=== PATIENT | male | born 1960 | race American Indian/Alaskan Native ===

== ENCOUNTER 2018-06-29 13:57 | Inpatient (IN) | payer MEDICARE, OTHER ==
[~2018-06-29] VITALS: Ht 182.9 cm; Wt 100.0 kg
[2018-06-29 15:10] LABS: BASOPHILS # (AUTO) 0.1 X10'3 (0-0.2); BASOPHILS % (AUTO) 0.4 % (0-1); EOSINOPHILS % (AUTO) 0 % (0-6); HEMATOCRIT 46.7 % (42.0-52.0); HEMOGLOBIN 15.8 g/dl (14.0-17.9); LYMPHOCYTES # (AUTO) 1.1 X10'3 (1.1-4.8); LYMPHOCYTES % (AUTO) 6.9 % (21-51); MEAN CORPUSCULAR HEMOGLOBIN 30.1 PG (27.0-31.0); MEAN CORPUSCULAR HGB CONC 33.9 g/dL (33.0-36.5); MEAN CORPUSCULAR VOLUME 88.9 FL (78-98); MEAN PLATELET VOLUME 9.1 FL (7.4-10.4); MONOCYTES # (AUTO) 1.2 X10'3 (0-0.9); MONOCYTES % (AUTO) 7.6 % (2-12); NEUTROPHILS # (AUTO) 13.1 X10'3 (1.8-7.7); NEUTROPHILS % (AUTO) 85.1 % (42-75); PLATELET COUNT 292 X10'3 (140-440); RED BLOOD COUNT 5.26 X10'6 (4.70-6.10); RED CELL DISTRIBUTION WIDTH 14.2 % (11.5-14.5); WHITE BLOOD COUNT 15.4 X10'3 (4.5-11.0)
[2018-06-29] MEDS ORDERED: pantoprazole 40 MG vial IV ONE (15:10)
[2018-06-29 15:23] LABS: PARTIAL THROMBOPLASTIN TIME 25 SECONDS (22-32)
[2018-06-29 15:41] LABS: ALANINE AMINOTRANSFERASE 29 U/L (12-78); ALBUMIN 4.7 G/DL (3.4-5.0); ALBUMIN/GLOBULIN RATIO 1.3 (1.1-1.5); ALKALINE PHOSPHATASE 147 IU/L (46-116); ANION GAP 16 (8-16); ASPARTATE AMINO TRANSFERASE 56 U/L (10-37); BILIRUBIN,TOTAL 3.4 MG/DL (0.1-1.0); BLOOD UREA NITROGEN 14 MG/DL (7-18); BUN/CREATININE RATIO 9.7 (5.4-32.0); CALCIUM 9.9 MG/DL (8.5-10.1); CHLORIDE 94 MMOL/L (99-107); CREATININE 1.45 MG/DL (0.60-1.10); GLUCOSE 129 MG/DL (70-104); SODIUM 131 MMOL/L (135-145); TOTAL CARBON DIOXIDE 20.6 MMOL/L (24-32); TOTAL PROTEIN 8.4 G/DL (6.4-8.2); eGFR 50 ML/MIN
[2018-06-29] MEDS ORDERED: normal saline 1000ml 1,000 ML IV ONE ×2 (15:45)
[2018-06-29 15:54] LABS: CLARITY,URINE CLEAR (Clear); COLOR,URINE YELLOW (Yellow); GLUCOSE, URINE NEGATIVE (Neg); KETONES,URINE 15 mg/dl (Neg); LEUKOCYTE ESTERASE ,URINE NEGATIVE (Neg); NITRITES, URINE NEGATIVE (Neg); OCCULT BLOOD,URINE SMALL (Neg); PROTEIN,URINE TRACE mg/dl (Neg); UROBILINOGEN,URINE 0.2 E.U/dL (0.2-1.0)
[2018-06-29 15:57] LABS: UA COLLECTION TYPE CLN CATCH MIDSTREAM
[2018-06-29 16:04] LABS: SQUAMOUS EPITHELIAL CELL,UR FEW /LPF (FEW)
[2018-06-29 16:04] LABS: ETHANOL < 0.010 GM/DL (0.0-0.010)
[2018-06-29 16:06] LABS: WBC,URINE 0-4 /HPF (0-4)
[2018-06-29 16:07] LABS: BACTERIA,URINE FEW /HPF (Neg); RBC,URINE 0-2 /HPF (0-2)
[2018-06-29 16:08] LABS: TRANSITIONAL EPI CELLS,URINE FEW /HPF
[2018-06-29 16:09] LABS: URINE AMPHETAMINE SCREEN NEGATIVE (Neg); URINE BARBITUATE SCREEN NEGATIVE (Neg); URINE BENZODIAZEPINES SCREEN NEGATIVE (Neg); URINE CANNABINOID SCREEN NEGATIVE (Neg); URINE COCAINE SCREEN NEGATIVE (Neg); URINE METHADONE SCREEN NEGATIVE (Neg); URINE OPIATE SCREEN NEGATIVE (Neg); URINE PHENCYCLIDINE SCREEN NEGATIVE (Neg)
--- NOTE | 2018-06-29 17:12 | NUR ---
MUKUL NEGATIVE WITH DR WALTERS IN ROOM
[2018-06-29] MEDS ORDERED: LORazepam 2 mg/ml vial IV ONE (17:15)
[2018-06-29] MEDS ORDERED: dextrose 50%-water 50ml dispensing syringe IV PRN (17:25)
[2018-06-29] MEDS ORDERED: haloperidol lactate 5mg/ml inj IM PRN (17:25)
[2018-06-29] MEDS ORDERED: acetaminophen 325mg tablet PO PRN ×2 (17:25)
[2018-06-29] MEDS ORDERED: magnesium 4gm in 100ml NS 100 ML IV PRN (17:25)
[2018-06-29] MEDS ORDERED: folic acid inj. 2 MG, thiamine inj. 100 MG, MVI, adult No.4 with vit. K 10 ML in dextro... IV SCH ×4 (17:25)
[2018-06-29] MEDS ORDERED: haloperidol 5mg tablet PO PRN (17:25)
[2018-06-29] MEDS ORDERED: potassium Cl 20 mEq SR tablet PO PRN ×2 (17:25)
[2018-06-29] MEDS ORDERED: metoclopramide 5 mg/ml inj IV PRN (17:25)
[2018-06-29] MEDS ORDERED: magnesium 2GM in 50ml NS 50 ML IV PRN (17:25)
[2018-06-29] MEDS ORDERED: LORazepam 2 mg/ml vial IV PRN (17:25)
[2018-06-29] MEDS ORDERED: ondansetron/PF 4mg/2ml inj IV PRN (17:25)
[2018-06-29] MEDS ORDERED: magnesium Cl slow-release 64mg tablet PO PRN (17:25)
[2018-06-29] MEDS ORDERED: HYDROcodone/acetaminophen 5mg/325mg tablet PO PRN (17:25)
[2018-06-29] MEDS ORDERED: potassium Cl 40MEQ/NS 500ml 500 ML IV PRN ×2 (17:25)
[2018-06-29] MEDS ORDERED: thiamine 100mg/ml 2ml inj. IV ONE (17:25)
[2018-06-29] MEDS ORDERED: magnesium hydroxide 30ml (MOM) UD suspension PO PRN (17:25)
[2018-06-29] MEDS ORDERED: mag hydrox/Alum hydrox/simeth 30ml oral suspension PO PRN (17:25)
[2018-06-29 17:35] LABS: AMYLASE 25 U/L (25-115); LIPASE 90 U/L (73-393)
[2018-06-29] MEDS ORDERED: QUET100T33 PO ×3 (17:55)
[2018-06-29] MEDS ORDERED: PANT20TA3 PO (17:55)
[2018-06-29] MEDS ORDERED: POTA-82 PO (17:55)
[2018-06-29] MEDS ORDERED: PRAZ1CAP5 PO (17:55)
[2018-06-29] MEDS ORDERED: DULO60CA64 PO (17:55)
[2018-06-29] MEDS ORDERED: SILD100T PO (17:55)
[2018-06-29] MEDS ORDERED: METO-411 PO (17:55)
[2018-06-29] MEDS ORDERED: MULT-1154 PO (18:03)
[2018-06-29] MEDS ORDERED: TRAZ-219 PO (18:05)
[2018-06-29] MEDS ORDERED: MECL-111 PO (18:12)
[2018-06-29] MEDS ORDERED: LITH150C8 PO (18:12)
[2018-06-29] MEDS ORDERED: LISI2.5T89 PO (18:12)
[2018-06-29] MEDS ORDERED: ASPI-611 PO (18:12)
[2018-06-29] MEDS ORDERED: GABA-534 PO (18:12)
[2018-06-29] MEDS ORDERED: ATOR-2 PO (18:12)
[2018-06-29] MEDS ORDERED: non-formulary drug (Trazodone HCl 2 TAB) PO PRN (18:25)
[2018-06-29] MEDS: multivitamins, therapeutics tablet PO SCH (18:33)
[2018-06-29] MEDS: piperacillin/tazo 3.375gm/50ml 50 ML IV SCH (18:33)
[2018-06-29] MEDS: normal saline 1000ml 1,000 ML IV SCH (18:33)
[2018-06-29 18:39] LABS: MAGNESIUM 2.1 MG/DL (1.5-2.4)
[2018-06-29] MEDS ORDERED: traZODone 50mg tablet PO PRN (18:45)
[2018-06-29 20:53] LABS: OCCULT BLOOD STOOL NEGATIVE (Neg)
[2018-06-29] MEDS ORDERED: quetiapine 100mg tablet PO SCH (21:00)
[2018-06-29] MEDS: gabapentin 400mg capsule PO SCH (21:35)
[2018-06-29] MEDS: lithium carbonate 150mg capsule PO SCH (21:36)
[2018-06-29] MEDS: prazosin 1mg capsule PO SCH (21:36)
--- NOTE | 2018-06-30 01:33 | NUR ---
SHAWN VIDAL AGAIN NOTIFIED THAT PATIENT DOES NOT HAVE AN IV
[2018-06-30] MEDS: piperacillin/tazo 3.375gm/50ml 50 ML IV SCH ×3 (01:54→16:56)
[2018-06-30] MEDS: normal saline 1000ml 1,000 ML IV SCH ×3 (02:05→21:15)
[2018-06-30 03:11] LABS: BASOPHILS % (AUTO) 0.2 % (0-1); EOSINOPHILS % (AUTO) 0.4 % (0-6); HEMATOCRIT 39.2 % (42.0-52.0); HEMOGLOBIN 13.3 g/dl (14.0-17.9); LYMPHOCYTES # (AUTO) 1.6 X10'3 (1.1-4.8); LYMPHOCYTES % (AUTO) 14.8 % (21-51); MEAN CORPUSCULAR HEMOGLOBIN 30.1 PG (27.0-31.0); MEAN CORPUSCULAR HGB CONC 33.9 g/dL (33.0-36.5); MEAN CORPUSCULAR VOLUME 88.8 FL (78-98); MONOCYTES # (AUTO) 1.3 X10'3 (0-0.9); NEUTROPHILS # (AUTO) 7.8 X10'3 (1.8-7.7); NEUTROPHILS % (AUTO) 72.6 % (42-75); PLATELET COUNT 186 X10'3 (140-440); RED BLOOD COUNT 4.42 X10'6 (4.70-6.10); RED CELL DISTRIBUTION WIDTH 14.4 % (11.5-14.5); WHITE BLOOD COUNT 10.7 X10'3 (4.5-11.0)
[2018-06-30 03:20] LABS: INR 1.1 INR; PARTIAL THROMBOPLASTIN TIME 24 SECONDS (22-32)
[2018-06-30 03:28] LABS: ALANINE AMINOTRANSFERASE 25 U/L (12-78); ALBUMIN 3.6 G/DL (3.4-5.0); ALBUMIN/GLOBULIN RATIO 1.2 (1.1-1.5); ALKALINE PHOSPHATASE 107 IU/L (46-116); ANION GAP 13 (8-16); ASPARTATE AMINO TRANSFERASE 40 U/L (10-37); BILIRUBIN,TOTAL 2.6 MG/DL (0.1-1.0); BLOOD UREA NITROGEN 14 MG/DL (7-18); CALCIUM 8.4 MG/DL (8.5-10.1); CHLORIDE 104 MMOL/L (99-107); CHOL/HDL RATIO 3.1 (0.00-4.99); CHOLESTEROL 107 MG/DL (0-200); CREATININE 1.17 MG/DL (0.60-1.10); GLUCOSE 125 MG/DL (70-104); HDL CHOLESTEROL 34 MG/DL (35-60); LDL CHOLESTEROL 60 MG/DL (50-100); MAGNESIUM 2.2 MG/DL (1.5-2.4); PHOSPHORUS 2.7 MG/DL (2.3-4.5); POTASSIUM 3.3 MMOL/L (3.5-5.1); SODIUM 138 MMOL/L (135-145); TOTAL PROTEIN 6.5 G/DL (6.4-8.2); TRIGLYCERIDES 164 MG/DL (20-135); eGFR 64 ML/MIN
--- NOTE | 2018-06-30 06:38 | NUR ---
AVNI VIDAL AWARE MEDICATIONS AND BELONGINGS NOT DOCUMENTED
[2018-06-30] MEDS: K and/or MAG REPLACEMENT MC SCH (08:00)
[2018-06-30] MEDS ORDERED: non-formulary drug (Metoprolol Succinate 0.5 TAB) PO SCH (08:00)
[2018-06-30] MEDS ORDERED: non-formulary drug (Potassium Chloride 2 TAB) PO SCH (08:00)
[2018-06-30] MEDS: quetiapine 100mg tablet PO SCH ×2 (08:00)
[2018-06-30] MEDS ORDERED: non-formulary drug (Aspirin (Aspir 81) 1 TAB) PO SCH (08:00)
[2018-06-30] MEDS ORDERED: non-formulary drug (Duloxetine HCl 1 CAP) PO SCH (08:00)
[2018-06-30] MEDS: lithium carbonate 150mg capsule PO SCH ×2 (10:06→21:13)
[2018-06-30] MEDS: duloxetine 30mg CAPSULE.DR PO SCH (10:07)
[2018-06-30] MEDS: multivitamins, therapeutics tablet PO SCH (10:07)
[2018-06-30] MEDS: lisinopril 2.5mg tablet PO SCH (10:08)
[2018-06-30] MEDS: metoprolol succinate 25mg (24-HOUR) SR. Tablet PO SCH (10:09)
[2018-06-30] MEDS: prazosin 1mg capsule PO SCH ×2 (10:09→21:13)
[2018-06-30] MEDS: aspirin 81mg tablet.DR PO SCH (10:09)
[2018-06-30] MEDS: pantoprazole 40 MG vial IV SCH (10:10)
[2018-06-30] MEDS: enoxaparin 40mg/0.4ml syringe SUBCUT SCH (10:11)
[2018-06-30] MEDS: gabapentin 400mg capsule PO SCH ×3 (10:22→21:14)
[2018-06-30] MEDS: potassium Cl 20 mEq SR tablet PO SCH (10:23)
[2018-06-30] MEDS ORDERED: potassium Cl 20 mEq SR tablet PO ONE (11:50)
[2018-06-30] MEDS: folic acid inj. 2 MG, thiamine inj. 100 MG in dextrose 5% water 500ml 500 ML IV SCH (12:31)
[2018-06-30 17:22] VITALS: BP 106/72
[2018-06-30 19:00] VITALS: BP 113/75
[2018-06-30] MEDS: QUEtiapine 25mg tablet PO SCH (21:15)
[2018-06-30 23:00] VITALS: BP 108/73
[2018-07-01] MEDS: piperacillin/tazo 3.375gm/50ml 50 ML IV SCH ×2 (00:49→07:46)
[2018-07-01 03:00] VITALS: BP 107/72
[2018-07-01 05:48] LABS: BASOPHILS # (AUTO) 0.1 X10'3 (0-0.2); BASOPHILS % (AUTO) 0.6 % (0-1); EOSINOPHILS # (AUTO) 0.3 X10'3 (0-0.9); EOSINOPHILS % (AUTO) 3.6 % (0-6); HEMATOCRIT 35.7 % (42.0-52.0); HEMOGLOBIN 11.8 g/dl (14.0-17.9); LYMPHOCYTES # (AUTO) 1.4 X10'3 (1.1-4.8); LYMPHOCYTES % (AUTO) 17.5 % (21-51); MEAN CORPUSCULAR HEMOGLOBIN 29.9 PG (27.0-31.0); MEAN CORPUSCULAR HGB CONC 33.1 g/dL (33.0-36.5); MEAN CORPUSCULAR VOLUME 90.2 FL (78-98); MEAN PLATELET VOLUME 8.9 FL (7.4-10.4); MONOCYTES # (AUTO) 0.8 X10'3 (0-0.9); MONOCYTES % (AUTO) 9.8 % (2-12); NEUTROPHILS # (AUTO) 5.6 X10'3 (1.8-7.7); NEUTROPHILS % (AUTO) 68.5 % (42-75); PLATELET COUNT 156 X10'3 (140-440); RED BLOOD COUNT 3.96 X10'6 (4.70-6.10); RED CELL DISTRIBUTION WIDTH 14.1 % (11.5-14.5); WHITE BLOOD COUNT 8.2 X10'3 (4.5-11.0)
[2018-07-01 05:59] LABS: INR 1.1 INR; PARTIAL THROMBOPLASTIN TIME 26 SECONDS (22-32)
[2018-07-01 06:00] VITALS: BP 108/70
[2018-07-01 06:09] LABS: ALANINE AMINOTRANSFERASE 18 U/L (12-78); ALBUMIN 3.1 G/DL (3.4-5.0); ALBUMIN/GLOBULIN RATIO 1.1 (1.1-1.5); ALKALINE PHOSPHATASE 95 IU/L (46-116); ANION GAP 10 (8-16); ASPARTATE AMINO TRANSFERASE 25 U/L (10-37); BILIRUBIN,TOTAL 1.8 MG/DL (0.1-1.0); BLOOD UREA NITROGEN 11 MG/DL (7-18); BUN/CREATININE RATIO 9.5 (5.4-32.0); CALCIUM 8.2 MG/DL (8.5-10.1); CHLORIDE 108 MMOL/L (99-107); CREATININE 1.16 MG/DL (0.60-1.10); GLUCOSE 109 MG/DL (70-104); MAGNESIUM 2.1 MG/DL (1.5-2.4); PHOSPHORUS 2.2 MG/DL (2.3-4.5); POTASSIUM 3.5 MMOL/L (3.5-5.1); SODIUM 140 MMOL/L (135-145); TOTAL CARBON DIOXIDE 21.8 MMOL/L (24-32); eGFR 65 ML/MIN
--- NOTE | 2018-07-01 06:19 | NUR ---
Problems reprioritized. Patient report given, questions answered & plan of care reviewed with Henrietta VIDAL.
[2018-07-01] MEDS: multivitamins, therapeutics tablet PO SCH (07:47)
[2018-07-01] MEDS: quetiapine 100mg tablet PO SCH ×2 (07:47→08:23)
[2018-07-01] MEDS: aspirin 81mg tablet.DR PO SCH (07:48)
[2018-07-01] MEDS: lisinopril 2.5mg tablet PO SCH (07:49)
[2018-07-01] MEDS: duloxetine 30mg CAPSULE.DR PO SCH (07:49)
[2018-07-01] MEDS: prazosin 1mg capsule PO SCH ×2 (07:51→20:57)
[2018-07-01] MEDS: gabapentin 400mg capsule PO SCH ×3 (07:51→20:57)
[2018-07-01] MEDS: metoprolol succinate 25mg (24-HOUR) SR. Tablet PO SCH (07:52)
[2018-07-01] MEDS: lithium carbonate 150mg capsule PO SCH ×2 (07:52→20:59)
[2018-07-01] MEDS: pantoprazole 40 MG vial IV SCH (07:53)
[2018-07-01] MEDS: enoxaparin 40mg/0.4ml syringe SUBCUT SCH (07:57)
[2018-07-01] MEDS: folic acid inj. 2 MG, thiamine inj. 100 MG in dextrose 5% water 500ml 500 ML IV SCH (08:00)
[2018-07-01] MEDS: K and/or MAG REPLACEMENT MC SCH (08:19)
[2018-07-01] MEDS: potassium Cl 20 mEq SR tablet PO SCH (08:23)
[2018-07-01 11:11] VITALS: BP 120/71
[2018-07-01 11:41] LABS: HBSAG SCREEN Negative (Negative); HEP A AB, IGM Negative (Negative); HEP B CORE AB, IGM Negative (Negative); HEPATITIS C ANTIBODY <0.1 s/co ratio (0.0-0.9)
--- NOTE | 2018-07-01 12:31 | NUR ---
Pt complained left food pain and its swelling Do you want X-ray ? Henrietta VIDAL ph#[phone]
[2018-07-01 15:15] VITALS: BP 116/77
[2018-07-01] MEDS ORDERED: LORazepam 2 mg/ml vial IV PRN (17:25)
[2018-07-01] MEDS ORDERED: LORazepam 1 MG tablet PO PRN (17:25)
--- NOTE | 2018-07-01 17:40 | NUR ---
Pt IV infiltrated @ 16:00 Multipal attemed made by IVNellie RN And rn relief charge can't start IV IVJ
[2018-07-01 18:30] VITALS: BP 109/72
[2018-07-01] MEDS: normal saline 1000ml 1,000 ML IV SCH (19:00)
[2018-07-01] MEDS: QUEtiapine 25mg tablet PO SCH (20:58)
[2018-07-01 22:30] VITALS: BP 110/71
--- NOTE | 2018-07-01 23:52 | NUR ---
Called Rafaela for additional pain meds other than Tylenol for left foot pain. PAGER ID: [phone] MESSAGE: Calling for new orders for 2 patients in PCU: [id number] Stiven Mccain, left foot pain [id number] Joao Brady, throat pain Please call Marilu in PCU [id number]
[2018-07-02] MEDS ORDERED: HYDROcodone/acetaminophen 5mg/325mg tablet PO PRN (00:25)
[2018-07-02] MEDS: HYDROcodone/acetaminophen 10/325mg tab PO PRN ×5 (00:53→20:58)
[2018-07-02 02:30] VITALS: BP 107/69
[2018-07-02] MEDS: normal saline 1000ml 1,000 ML IV SCH ×2 (05:12→15:22)
[2018-07-02 06:00] VITALS: BP 145/97
[2018-07-02 06:33] LABS: BASOPHILS # (AUTO) 0.1 X10'3 (0-0.2); BASOPHILS % (AUTO) 0.9 % (0-1); EOSINOPHILS # (AUTO) 0.4 X10'3 (0-0.9); EOSINOPHILS % (AUTO) 4.7 % (0-6); HEMATOCRIT 38.4 % (42.0-52.0); LYMPHOCYTES # (AUTO) 1.7 X10'3 (1.1-4.8); LYMPHOCYTES % (AUTO) 21.1 % (21-51); MEAN CORPUSCULAR HEMOGLOBIN 30.1 PG (27.0-31.0); MEAN CORPUSCULAR HGB CONC 33.7 g/dL (33.0-36.5); MEAN CORPUSCULAR VOLUME 89.3 FL (78-98); MEAN PLATELET VOLUME 9.3 FL (7.4-10.4); MONOCYTES # (AUTO) 0.8 X10'3 (0-0.9); MONOCYTES % (AUTO) 9.5 % (2-12); NEUTROPHILS # (AUTO) 5.2 X10'3 (1.8-7.7); NEUTROPHILS % (AUTO) 63.8 % (42-75); PLATELET COUNT 180 X10'3 (140-440); RED CELL DISTRIBUTION WIDTH 13.9 % (11.5-14.5); WHITE BLOOD COUNT 8.1 X10'3 (4.5-11.0)
[2018-07-02 06:44] LABS: PARTIAL THROMBOPLASTIN TIME 26 SECONDS (22-32)
[2018-07-02 06:51] LABS: ALANINE AMINOTRANSFERASE 28 U/L (12-78); ALBUMIN 3.2 G/DL (3.4-5.0); ALKALINE PHOSPHATASE 98 IU/L (46-116); ANION GAP 8 (8-16); ASPARTATE AMINO TRANSFERASE 27 U/L (10-37); BLOOD UREA NITROGEN 8 MG/DL (7-18); CALCIUM 8.9 MG/DL (8.5-10.1); CHLORIDE 107 MMOL/L (99-107); CREATININE 1.14 MG/DL (0.60-1.10); GLUCOSE 109 MG/DL (70-104); MAGNESIUM 2.1 MG/DL (1.5-2.4); PHOSPHORUS 3.6 MG/DL (2.3-4.5); POTASSIUM 3.4 MMOL/L (3.5-5.1); SODIUM 139 MMOL/L (135-145); TOTAL CARBON DIOXIDE 23.8 MMOL/L (24-32); TOTAL PROTEIN 6.4 G/DL (6.4-8.2); eGFR 66 ML/MIN
[2018-07-02] MEDS: pantoprazole 40 MG vial IV SCH (08:00)
[2018-07-02] MEDS: metoprolol succinate 25mg (24-HOUR) SR. Tablet PO SCH (08:36)
[2018-07-02] MEDS: quetiapine 100mg tablet PO SCH ×2 (08:36→08:37)
[2018-07-02] MEDS: duloxetine 30mg CAPSULE.DR PO SCH (08:36)
[2018-07-02] MEDS: potassium Cl 20 mEq SR tablet PO SCH (08:37)
[2018-07-02] MEDS: prazosin 1mg capsule PO SCH ×2 (08:38→20:58)
[2018-07-02] MEDS: lithium carbonate 150mg capsule PO SCH ×2 (08:38→20:45)
[2018-07-02] MEDS: aspirin 81mg tablet.DR PO SCH (08:38)
[2018-07-02] MEDS: lisinopril 2.5mg tablet PO SCH (08:38)
[2018-07-02] MEDS: multivitamins, therapeutics tablet PO SCH (08:39)
[2018-07-02] MEDS: enoxaparin 40mg/0.4ml syringe SUBCUT SCH (08:39)
[2018-07-02] MEDS: gabapentin 400mg capsule PO SCH ×3 (08:39→20:57)
[2018-07-02] MEDS: K and/or MAG REPLACEMENT MC SCH (08:44)
[2018-07-02] MEDS: folic acid inj. 2 MG, thiamine inj. 100 MG in dextrose 5% water 500ml 500 ML IV SCH (08:45)
[2018-07-02 11:11] VITALS: BP 118/80
[2018-07-02 15:15] VITALS: BP 121/76
[2018-07-02 18:18] VITALS: BP 110/73
[2018-07-02] MEDS: QUEtiapine 25mg tablet PO SCH (20:59)
[2018-07-02 22:00] VITALS: BP 101/64
[2018-07-02] MEDS: azithromycin 250mg tablet PO SCH (22:04)
[2018-07-03] MEDS: normal saline 1000ml 1,000 ML IV SCH ×3 (01:22→20:26)
[2018-07-03 02:00] VITALS: BP 93/56
[2018-07-03] MEDS: HYDROcodone/acetaminophen 10/325mg tab PO PRN ×4 (03:14→20:10)
[2018-07-03 06:00] VITALS: BP 106/61
[2018-07-03 06:16] LABS: BASOPHILS # (AUTO) 0.1 X10'3 (0-0.2); BASOPHILS % (AUTO) 0.9 % (0-1); EOSINOPHILS # (AUTO) 0.4 X10'3 (0-0.9); EOSINOPHILS % (AUTO) 4.1 % (0-6); HEMATOCRIT 41.5 % (42.0-52.0); HEMOGLOBIN 13.8 g/dl (14.0-17.9); LYMPHOCYTES # (AUTO) 2.2 X10'3 (1.1-4.8); LYMPHOCYTES % (AUTO) 21.8 % (21-51); MEAN CORPUSCULAR HEMOGLOBIN 30.2 PG (27.0-31.0); MEAN CORPUSCULAR HGB CONC 33.3 g/dL (33.0-36.5); MEAN CORPUSCULAR VOLUME 90.8 FL (78-98); MEAN PLATELET VOLUME 9.2 FL (7.4-10.4); MONOCYTES # (AUTO) 0.7 X10'3 (0-0.9); MONOCYTES % (AUTO) 7.4 % (2-12); NEUTROPHILS # (AUTO) 6.6 X10'3 (1.8-7.7); NEUTROPHILS % (AUTO) 65.8 % (42-75); PLATELET COUNT 243 X10'3 (140-440); RED BLOOD COUNT 4.57 X10'6 (4.70-6.10); RED CELL DISTRIBUTION WIDTH 14.3 % (11.5-14.5); WHITE BLOOD COUNT 10.1 X10'3 (4.5-11.0)
[2018-07-03 06:34] LABS: ALANINE AMINOTRANSFERASE 25 U/L (12-78); ALBUMIN 3.6 G/DL (3.4-5.0); ALKALINE PHOSPHATASE 112 IU/L (46-116); ANION GAP 10 (8-16); ASPARTATE AMINO TRANSFERASE 22 U/L (10-37); BILIRUBIN,TOTAL 0.8 MG/DL (0.1-1.0); BLOOD UREA NITROGEN 11 MG/DL (7-18); BUN/CREATININE RATIO 7.5 (5.4-32.0); CALCIUM 9.1 MG/DL (8.5-10.1); CHLORIDE 104 MMOL/L (99-107); CREATININE 1.47 MG/DL (0.60-1.10); GLUCOSE 110 MG/DL (70-104); PHOSPHORUS 4.3 MG/DL (2.3-4.5); POTASSIUM 3.5 MMOL/L (3.5-5.1); SODIUM 139 MMOL/L (135-145); TOTAL CARBON DIOXIDE 25.4 MMOL/L (24-32); TOTAL PROTEIN 7.2 G/DL (6.4-8.2); eGFR 50 ML/MIN
[2018-07-03] MEDS: aspirin 81mg tablet.DR PO SCH (07:56)
[2018-07-03] MEDS: potassium Cl 20 mEq SR tablet PO SCH (07:56)
[2018-07-03] MEDS: azithromycin 250mg tablet PO SCH (07:56)
[2018-07-03] MEDS: pantoprazole 40mg Tablet.DR PO SCH (07:56)
[2018-07-03] MEDS: multivitamins, therapeutics tablet PO SCH (07:56)
[2018-07-03] MEDS: gabapentin 400mg capsule PO SCH ×3 (07:57→20:10)
[2018-07-03] MEDS: lithium carbonate 150mg capsule PO SCH ×2 (07:59→20:11)
[2018-07-03] MEDS: duloxetine 30mg CAPSULE.DR PO SCH (07:59)
[2018-07-03] MEDS: quetiapine 100mg tablet PO SCH ×2 (08:00→08:03)
[2018-07-03] MEDS: folic acid inj. 2 MG, thiamine inj. 100 MG in dextrose 5% water 500ml 500 ML IV SCH (08:00)
[2018-07-03] MEDS: prazosin 1mg capsule PO SCH ×2 (08:00→20:10)
[2018-07-03] MEDS: K and/or MAG REPLACEMENT MC SCH (08:00)
[2018-07-03] MEDS: enoxaparin 40mg/0.4ml syringe SUBCUT SCH (08:02)
[2018-07-03] MEDS: metoprolol succinate 25mg (24-HOUR) SR. Tablet PO SCH (08:03)
[2018-07-03] MEDS: lisinopril 2.5mg tablet PO SCH (08:03)
--- NOTE | 2018-07-03 11:46 | NUR ---
Initial: Pt admit with toxic versus metabolic encephalopathy with some intractable N/V with some streaks of blood at admission that has completely resolved now per MD progress notes. Pt currently receiving IV Thiamine/Folic acid/Dext and MVI for Etoh abuse. Patient's diet has been advanced to heart healthy diet from liquid diet, documented PO intake 100% throughout LOS. LBM 07/01. No edema or wounds. No nutrition diagnosis at this time. Will continue to follow. Recommendations: 1) Continue heart healthy diet 2) Continue Thiamine, Folic acid, and MVI given hx Etoh abuse 3) Wt per rx Addendum: 07/03/18 at [address] Amended: Links added.
[2018-07-03 14:06] VITALS: BP 97/64
[2018-07-03 15:00] VITALS: BP 112/80
--- NOTE | 2018-07-03 16:54 | NUR ---
Student documentation: I have reviewed and agree with all interventions, assessments performed and documented by LYNDSAY Cool. Student Medication Administration: For this medication-pass time frame, all medication were reviewed, dispensed, administered and documented per hospital policy by LYNDSAY Cool.
[2018-07-03] MEDS ORDERED: LORazepam 2 mg/ml vial IV PRN (17:25)
[2018-07-03] MEDS ORDERED: LORazepam 1 MG tablet PO PRN (17:25)
--- NOTE | 2018-07-03 18:20 | NUR ---
Patient in room PCU 3023. I have received report from Art RN and had the opportunity to ask questions and assume patient care.
[2018-07-03 19:00] VITALS: BP 128/79
[2018-07-03] MEDS: lactobacillus rhamnosus 10,000 MMU CELLS/CAPSULE PO SCH (20:09)
[2018-07-03] MEDS: QUEtiapine 25mg tablet PO SCH (20:15)
[2018-07-03 23:00] VITALS: BP 125/67
[2018-07-04 05:29] LABS: BASOPHILS % (AUTO) 0.5 % (0-1); EOSINOPHILS # (AUTO) 0.3 X10'3 (0-0.9); HEMATOCRIT 37.5 % (42.0-52.0); HEMOGLOBIN 12.5 g/dl (14.0-17.9); LYMPHOCYTES # (AUTO) 1.5 X10'3 (1.1-4.8); LYMPHOCYTES % (AUTO) 18.6 % (21-51); MEAN CORPUSCULAR HEMOGLOBIN 30.2 PG (27.0-31.0); MEAN CORPUSCULAR HGB CONC 33.4 g/dL (33.0-36.5); MEAN CORPUSCULAR VOLUME 90.5 FL (78-98); MEAN PLATELET VOLUME 9.3 FL (7.4-10.4); MONOCYTES # (AUTO) 0.6 X10'3 (0-0.9); MONOCYTES % (AUTO) 8.3 % (2-12); NEUTROPHILS # (AUTO) 5.4 X10'3 (1.8-7.7); NEUTROPHILS % (AUTO) 68.6 % (42-75); PLATELET COUNT 218 X10'3 (140-440); RED BLOOD COUNT 4.14 X10'6 (4.70-6.10); RED CELL DISTRIBUTION WIDTH 14.4 % (11.5-14.5); WHITE BLOOD COUNT 7.8 X10'3 (4.5-11.0)
[2018-07-04 05:46] LABS: ALANINE AMINOTRANSFERASE 22 U/L (12-78); ALBUMIN 3.3 G/DL (3.4-5.0); ALKALINE PHOSPHATASE 96 IU/L (46-116); ANION GAP 5 (8-16); ASPARTATE AMINO TRANSFERASE 17 U/L (10-37); BILIRUBIN,TOTAL 0.6 MG/DL (0.1-1.0); BLOOD UREA NITROGEN 12 MG/DL (7-18); BUN/CREATININE RATIO 10.9 (5.4-32.0); CALCIUM 8.8 MG/DL (8.5-10.1); CHLORIDE 107 MMOL/L (99-107); GLUCOSE 96 MG/DL (70-104); MAGNESIUM 1.8 MG/DL (1.5-2.4); PHOSPHORUS 3.3 MG/DL (2.3-4.5); SODIUM 139 MMOL/L (135-145); TOTAL CARBON DIOXIDE 26.8 MMOL/L (24-32); TOTAL PROTEIN 6.5 G/DL (6.4-8.2); eGFR 69 ML/MIN
[2018-07-04 07:00] VITALS: BP 128/86
[2018-07-04 07:05] LABS: HIV ANTIBODY 1&2 RAPID NON-REACTIVE (Neg)
[2018-07-04] MEDS: normal saline 1000ml 1,000 ML IV SCH ×2 (07:22→16:53)
[2018-07-04] MEDS: K and/or MAG REPLACEMENT MC SCH (08:00)
[2018-07-04] MEDS: azithromycin 250mg tablet PO SCH (08:44)
[2018-07-04] MEDS: lactobacillus rhamnosus 10,000 MMU CELLS/CAPSULE PO SCH ×2 (08:45→20:36)
[2018-07-04] MEDS: gabapentin 400mg capsule PO SCH ×3 (08:45→20:35)
[2018-07-04] MEDS: lithium carbonate 150mg capsule PO SCH ×2 (08:46→20:36)
[2018-07-04] MEDS: lisinopril 2.5mg tablet PO SCH (08:47)
[2018-07-04] MEDS: potassium Cl 20 mEq SR tablet PO SCH (08:48)
[2018-07-04] MEDS: aspirin 81mg tablet.DR PO SCH (08:48)
[2018-07-04] MEDS: quetiapine 100mg tablet PO SCH ×2 (08:48→08:58)
[2018-07-04] MEDS: metoprolol succinate 25mg (24-HOUR) SR. Tablet PO SCH (08:48)
[2018-07-04] MEDS: folic acid 1mg tablet PO SCH (08:49)
[2018-07-04] MEDS: multivitamins, therapeutics tablet PO SCH (08:49)
[2018-07-04] MEDS: pantoprazole 40mg Tablet.DR PO SCH (08:49)
[2018-07-04] MEDS: thiamine 100mg tablet PO SCH (08:49)
[2018-07-04] MEDS: prazosin 1mg capsule PO SCH ×2 (08:50→20:36)
[2018-07-04] MEDS: duloxetine 30mg CAPSULE.DR PO SCH (08:50)
[2018-07-04] MEDS: enoxaparin 40mg/0.4ml syringe SUBCUT SCH (08:50)
[2018-07-04] MEDS: HYDROcodone/acetaminophen 10/325mg tab PO PRN ×3 (08:57→20:36)
[2018-07-04 11:00] VITALS: BP 120/75
[2018-07-04 15:00] VITALS: BP 107/67
--- NOTE | 2018-07-04 18:05 | NUR ---
Patient in room PCU 3023. I have received report from Jonathon VIDAL and had the opportunity to ask questions and assume patient care.
--- NOTE | 2018-07-04 18:39 | NUR ---
Problems reprioritized. Patient report given, questions answered & plan of care reviewed with Alissa VIDAL.
[2018-07-04 19:00] VITALS: BP 117/79
[2018-07-04 20:35] VITALS: BP 119/75
[2018-07-04] MEDS: QUEtiapine 25mg tablet PO SCH (20:36)
[2018-07-04 23:00] VITALS: BP 123/74
[2018-07-05] MEDS: HYDROcodone/acetaminophen 10/325mg tab PO PRN ×2 (00:35→05:43)
[2018-07-05] MEDS: normal saline 1000ml 1,000 ML IV SCH (00:37)
[2018-07-05 03:00] VITALS: BP 119/73
--- NOTE | 2018-07-05 06:00 | NUR ---
Patient in room PCU 3023. I have received report from YOUNG Maxwell and had the opportunity to ask questions and assume patient care with YOUNG Holt.
--- NOTE | 2018-07-05 06:27 | NUR ---
Problems reprioritized. Patient report given, questions answered & plan of care reviewed with Jonathon VIDAL.
[2018-07-05 07:00] VITALS: BP 130/82
[2018-07-05] MEDS: lithium carbonate 150mg capsule PO SCH (07:30)
[2018-07-05] MEDS: potassium Cl 20 mEq SR tablet PO SCH (07:30)
[2018-07-05] MEDS: multivitamins, therapeutics tablet PO SCH (07:30)
[2018-07-05] MEDS: prazosin 1mg capsule PO SCH (07:30)
[2018-07-05] MEDS: thiamine 100mg tablet PO SCH (07:31)
[2018-07-05] MEDS: gabapentin 400mg capsule PO SCH (07:31)
[2018-07-05] MEDS: metoprolol succinate 25mg (24-HOUR) SR. Tablet PO SCH (07:31)
[2018-07-05] MEDS: duloxetine 30mg CAPSULE.DR PO SCH (07:32)
[2018-07-05] MEDS: azithromycin 250mg tablet PO SCH (07:33)
[2018-07-05] MEDS: lactobacillus rhamnosus 10,000 MMU CELLS/CAPSULE PO SCH (07:33)
[2018-07-05] MEDS: aspirin 81mg tablet.DR PO SCH (07:33)
[2018-07-05 07:34] VITALS: BP_SYST 130
[2018-07-05] MEDS: lisinopril 2.5mg tablet PO SCH (07:34)
[2018-07-05] MEDS: folic acid 1mg tablet PO SCH (07:34)
[2018-07-05] MEDS: enoxaparin 40mg/0.4ml syringe SUBCUT SCH (07:35)
[2018-07-05] MEDS: quetiapine 100mg tablet PO SCH ×2 (07:38)
[2018-07-05] MEDS: pantoprazole 40mg Tablet.DR PO SCH (07:43)
[2018-07-05] MEDS: K and/or MAG REPLACEMENT MC SCH (08:00)
[2018-07-05] MEDS ORDERED: thiamine tablet PO (09:12)
[2018-07-05] MEDS ORDERED: LACT1CAP26 PO (09:12)
[2018-07-05] MEDS ORDERED: FOLI1TAB16 PO (09:12)
[2018-07-05] MEDS ORDERED: AZI25OT PO (09:12)
--- NOTE | 2018-07-05 10:30 | NUR ---
Patient discharged. Patient discharged home via private vehicle. IV catheter removed prior to discharge, catheter intact. Tele leads removed prior to discharge and tele box returned to inbound telemarketer. Discharge instructions discussed with patient via RN. All belongings sent home with patient. Patient's home medications retrieved from pharmacy and provided to patient. All questions and concerns addressed with patient prior to discharge. Patient escorted downstairs via student nurse in wheelchair.
[2018-07-06 05:22] LABS: IMMUNOGLOBULIN E, TOTAL 28 IU/mL (6-495)
[2018-07-06 11:19] LABS: % FREE PSA 33.3 % (.); PSA, FREE 0.1 ng/mL
== END 2018-07-05 10:30 | disposition home or self-care (01) | DRG 91 ==
LOC: ER 13:58 → ED HOLD 17:28 → EDBEDREQSVC 06-30 10:53 → EDBEDREQ 06-30 10:53 → PCU 3S 06-30 17:10
PROVIDERS: ADMIT Family Medicine; ATTEND Family Medicine
DX: G92 Toxic encephalopathy (principal); I21.A1 Myocardial infarction type 2; E87.1 Hypo-osmolality and hyponatremia; N17.9 Acute kidney failure, unspecified; I13.0 Hypertensive heart and chronic kidney disease with heart failure and stage 1 through stage 4 chronic kidney disease, or unspecified chronic kidney disease; I71.2 Thoracic aortic aneurysm, without rupture; R74.0 Nonspecific elevation of levels of transaminase and lactic acid dehydrogenase [LDH]; B39.9 Histoplasmosis, unspecified; N18.9 Chronic kidney disease, unspecified; F10.229 Alcohol dependence with intoxication, unspecified; E78.5 Hyperlipidemia, unspecified; F31.9 Bipolar disorder, unspecified; R19.7 Diarrhea, unspecified; I25.10 Atherosclerotic heart disease of native coronary artery without angina pectoris; I50.9 Heart failure, unspecified; E87.6 Hypokalemia; S92.332A Displaced fracture of third metatarsal bone, left foot, initial encounter for closed fracture; S92.342A Displaced fracture of fourth metatarsal bone, left foot, initial encounter for closed fracture; X58.XXXA Exposure to other specified factors, initial encounter; J47.9 Bronchiectasis, uncomplicated; F17.200 Nicotine dependence, unspecified, uncomplicated; Z95.1 Presence of aortocoronary bypass graft; Z87.11 Personal history of peptic ulcer disease; Z79.899 Other long term (current) drug therapy; Z79.82 Long term (current) use of aspirin; Y92.9 Unspecified place or not applicable
CPT/HCPCS: 36415; 70450; 71045; 71250; 73600; 73620; 74176; 76700; 80053; 80061; 80074; 80178; 80305; 80320; 81001; 82140; 82150; 82272; 82784; 82785; 82977; 83605; 83690; 83735; 84100; 84145; 84153; 84154; 84484; 85025; 85610; 85730; 86606; 86694; 86703; 86885; 86900; 86901; 87040; 87070; 87305; 93005; 93306; 96361; 96374; 96375; 97116; 97162; 97530; 99285; C9113; G0378; J1650; J2060; J2405; J2543; J3411; J3490; J7030; J7060